=== PATIENT | female | born 1945 | race Caucasian/White ===

== ENCOUNTER 2016-07-16 18:53 | Emergency (ER) | payer OTHER, MEDICARE ==
[~2016-07-16] VITALS: Ht 162.6 cm; Wt 84.1 kg
[~2016-07-16 18:53] MED LIST: ASPI81TA2 PO; DEX4 PO; GING1POW MC; MULT-1007 PO; OMEG-50 PO; OXYC-176 PO
[2016-07-16 18:55] VITALS: BP 176/75; PULSE 92; RESP 14; O2SAT 100
[2016-07-16 19:40] LABS: BASOPHILS % (AUTO) 0.3 % (0-3); EOSINOPHILS % (AUTO) 1.3 % (0-5); MONOCYTES % (AUTO) 6.8 % (4-12); Mean Corpuscular Hemoglobin 32.8 pg (27.0-35.0); Mean Corpuscular Volume 96.5 fL (81-100); NEUTROPHILS % (AUTO) 79.9 % (40-74); Platelet Count 181 bil/L (150-400)
[2016-07-16 20:06] VITALS: BP 169/80; PULSE 88; RESP 17; O2SAT 99
[2016-07-16 20:13] LABS: Magnesium 1.9 mg/dL (1.6-2.6)
[2016-07-16 20:14] LABS: TROPONIN T 0.011 ug/L (0.0-0.011)
--- NOTE | 2016-07-16 20:18 | DRSVH ---
PROCEDURE: X-RAY CHEST ONE VIEW, PORTABLE ([id number]) INDICATIONS: CHEST PAIN TECHNIQUE: One view of the chest was acquired. COMPARISON: [facility], CT, THORAX WITHOUT CONTRAST, 09/16/2014, 13:13. [facility], CR, CH EST 2 VIEW, 08/31/2012, 16:08. FINDINGS: Surgical changes and devices: Bilateral mastectomy. There are surgical clips in the axilla bilaterall y. Lungs and pleura: No pleural effusions or pneumothorax. Lungs are clear. Mediastinum: Mediastinal contours appear normal. Heart size is normal. Bones and chest wall: No suspicious bony lesions. Overlying soft tissues appear unremarkable. IMPRESSION: No acute cardiopulmonary disease. Dictated by: Marco Antonio Benton M.D. on 07/16/2016 at 20:16 Approved by: Marco Antonio Benton M.D. on 07/16/2016 at 20:17
--- NOTE | 2016-07-16 21:18 | ED.REPORT ---
HPI-Chest Pain 40 and Over Date of Service Jul 16, 2016 ED Provider: Dawood Quesada MD Patient is a 70 year old female with a history of breast cancer who presents to the ED via EMS from Urgent Care due to 4 days of substernal chest pressure. Patient reports a burning pain, which radiates into her back. Her pain is worse with playing down and she reports associated shortness of breath. Her pain is rated ay 8/10 at its worst. Patient reports swelling in her feet at the end of a long day but denies abnormal swelling, leg pain, history of blood clots, or a family history of blood clots. Patient reports taking 3x 81mg aspirin prior to arrival. Nursing Notes Stated Complaint: CHEST PAIN Chief Complaint: Chest Pain Nursing Notes Reviewed: Yes Allergies: Coded Allergies: lidocaine (Verified Allergy, Intermediate, 07/16/16) heart rate elevation with lido w epi Scheduled Aspirin-Expunged Drug, Do Not Renew! (Aspirin-Expunged Drug, Do Not Renew!) 81 Mg Tab 81 MG PO DAILY Dexamethasone-Expunged Drug, Do Not Renew! (Decadron-Expunged Drug, Do Not Renew !) 4 Mg Tablet 4 MG PO 2 days Xochitl Root (Xochitl Root) 1 Gm Powder 1 GM MC BID Multivitamin (Multi-Vitamin Daily) 1 Each Tablet 1 EACH PO DAILY OMEGA-3/DHA/EPA/FISH OIL-Expunged Drug, Do No (FISH OIL 500 MG-Expunged Drug, Do Not Renew!) 1 Each Capsule 1 EACH PO DAILY Oxycodone/APAP-Expunged Drug, Do Not Renew! (Percocet 5/325-Expunged Drug, Do Not Renew!) 1 Each Tablet 1-2 TAB PO Q4HP General Time Seen by MD: 21:08 Chief Complaint Chest pain Hx Obtained From: Patient Arrived By: Ambulance Sudden in Onset?: No Onset Occurred: 4 days ago Symptom Duration: Since onset Location: : Substernal Quality: Burning, Painful Radiation: : Back Severity: Current: Pain level 8 out of 10 Severity: Maximum: Pain level 8 out of 10 Recent Healthcare: No recent hospitalization, Recent doctor visit (Urgent Care TRIAL [facility]) Similar Sx Previous: No Past Medical History Past Medical History breast cancer Past Surgical History bilateral mastectomy Smoking History Unknown if Ever Smoker Social History Other Social History: Good social support, Local resident Ambulatory Status Independent Review of Systems Respiratory: Reports: Shortness of breath Cardiovascular: Reports: Chest pain Musculoskeletal: Reports: Back pain, Denies: Extremity pain, Extremity swelling Complete sys rev & neg: except as marked. Physical Exam Initial Vital Signs Vital Signs (First) Date Time Temp Pulse Resp B/P Pulse Ox O2 Delivery O2 Flow Rate FiO2 07/16/16 18:55 36.5 92 14 176/75 100 Room Air Initial VS: Reviewed, Vital signs normal Head / Eyes: Atraumatic, Normocephalic, PERRL ENT: Conjunctiva normal, No scleral icterus Neck: Supple, Full range of motion Extremities: Vascular intact, Neuro intact Skin: Warm, Dry, No cyanosis Neurologic: Alert, Oriented, Nonfocal Psychiatric: Mood/affect normal, Behavior normal, Normal thought content General/Constitutional: Awake, Alert Behavior: Positive: Tearful (and upset due to the wait) exam limited as the patient is eager for discharge Respiratory / Chest: Breath sounds NL, Breath sounds = bilat, No respiratory distress, No rales, No rhonchi, No wheezing Cardiovascular: Heart rate NL, Regular rhythm, No murmurs Abdomen: Did not examine Interpretation & Diagnostics Lab Results Interpretation Result Diagram: 07/16/16193607/16/16 193 Test 07/16/16 19:02 07/16/16 19:37 Hold Santana Top Tube Received (Received) White Blood Count 6.3th/mm3 (3.8-10.1) Red Blood Count 3.96mil/mm3 (3.90-5.20) Hemoglobin 13.0g/dL (12.0-15.6) Hematocrit 38.2% (35.0-46.0) Mean Corpuscular Volume 96.5fL (81-100) Mean Corpuscular Hemoglobin 32.8pg (27.0-35.0) Mean Corpuscular Hemoglobin Concent 34.0% (32.0-37.0) Red Cell Distribution Width 11.9% (12.3-15.4) Platelet Count 181bil/L (150-400) Neutrophils (%) (Auto) 79.9% (40-74) Lymphocytes (%) (Auto) 11.5% (14-46) Monocytes (%) (Auto) 6.8% (4-12) Eosinophils (%) (Auto) 1.3% (0-5) Basophils (%) (Auto) 0.3% (0-3) D-Dimer < 0.5mg/L (<0.50) Sodium Level 140mEq/L (134-144) Potassium Level 4.0mEq/L (3.5-5.2) Chloride Level 99mEq/L (97-108) Carbon Dioxide Level 25mmol/L (18-29) Blood Urea Nitrogen 11mg/dL (8-27) Creatinine 0.70mg/dL (0.57-1.00) Estimat Glomerular Filtration Rate 119mL/min (>59) Glucose Level 98mg/dL (60-99) Calcium Level 9.2mg/dL (8.5-10.1) Magnesium Level 1.9mg/dL (1.6-2.6) Total Bilirubin 0.4mg/dL (0.0-1.2) Aspartate Amino Transf (AST/SGOT) 27U/L (0-50) Alanine Aminotransferase (ALT/SGPT) 29U/L (0-32) Alkaline Phosphatase 64U/L (25-165) Troponin T 0.011ug/L (0.0-0.011) Total Protein 7.6g/dL (6.4-8.4) Albumin 4.8g/dL (3.4-5.0) Lab values outside NL range: no clinical significance. ECG Interpretation ECG Interpretation: Sinus rhythm, Rate 89 Left ventricular hypertrophy Time: 19:17 Interpreted by: ED physician X-Ray Chest Interpretation Chest Xray Interpretation: IMPRESSION: No acute cardiopulmonary disease. Dictated by: Marco Antonio Benton M.D. on 07/16/2016 at 20:16 Approved by: Marco Antonio Benton M.D. on 07/16/2016 at 20:17 View: Portable Interpretation / Wet Read by: Interpret - Radiologist Re-Eval/Medical Decision Med Decision/Clinical Course 70-year-old female who presents with burning substernal chest discomfort of several days' duration. She was initially seen at urgent care and referred here. Upon arrival here the ER census was very high. Nurse initiated orders were done. When I came on shift she been waiting several hours. Her chart was reviewed and I went in the room to see her. She was off the monitor dressed and ready to go home, and quite angry about the wait. I informed her that it did not appear that her pain was cardiac in origin. I recommended that we do a d-dimer but she said that she would not wait for the results. She requested that I call her if the results were positive. She was discharged home to follow up with her primary provider. The d-dimer did come back negative and a message was left on her phone telling her this. Source of Hx: Old records Time of Eval: 21:22 Patient Status: Condition improved Re-Evaluation/Progress Note: Initial interview and examination preformed. The patient is dressed and sitting at bedside. Patient is tearful and and angry, stating that she has been waiting for 3 hours and is upset that no one has seen her until now. Patient requests to be discharged home. Patient was informed that her EKG, chest x-ray, and labs were normal. Due to her symptoms, a D-dimer will be ordered. Patient declines to wait in the ED for this result but agrees to return to the ED for CT scan if indicated. Discharge instructions and follow-up discussed. All questions were addressed. Return to the ED warnings given. Counseled Regarding: Diagnosis, Lab results, Need for follow-up, When/why to return to ED Discharge & Departure Primary Impression: Chest pain with low risk for cardiac etiology Disposition: Home Discharge Condition All VS Reviewed: Yes Condition: Stable Patient Instructions: Chest Pain (ED) Additional Instructions: It does not appear that this pain is from your heart. Emergency room evaluation is totally normal. As we discussed I am doing a screening laboratory test to make sure that you do not have a blood clot in your lungs. If that test is negative, it is very unlikely that you had a clot. If the test is positive, however, you will need to return for a CT scan of your chest. I will call you as soon as the results are back. Referrals: Olena Salazar MD (PCP) Vern Attestation Portions of this note were transcribed by Maria Del Rosario Aguilar. I, Dr. Quesada personally performed the history, physical exam and medical decision-making; I reviewed and confirmed the accuracy of the information in the transcribed note. Signed by: Vern Haas, 07/16/2016 [id number] copies to: Olena Salazar MD, Howard L MD Jul 16, 2016 21:18 Maria Del Rosario Aguilar Jul 16, 2016 21:23
[2016-07-16 21:55] VITALS: BP 185/84; PULSE 84; RESP 18; O2SAT 100
== END 2016-07-16 21:30 | disposition home or self-care (01) ==
LOC: SED 18:53
DX: R07.2 Precordial pain (principal); R06.02 Shortness of breath; Z85.3 Personal history of malignant neoplasm of breast; Z88.8 Allergy status to other drugs, medicaments and biological substances; Z79.82 Long term (current) use of aspirin